=== PATIENT | male | born 1960 | race Caucasian/White ===

== ENCOUNTER 2017-08-12 22:22 | Emergency (ER) | END 2017-08-13 01:37 | disposition home or self-care (01) ==

== ENCOUNTER 2018-01-17 08:24 | Emergency (ER) | END 2018-01-17 10:12 | disposition home or self-care (01) ==

== ENCOUNTER 2018-04-01 16:36 | Emergency (ER) | END 2018-04-01 19:41 | disposition home or self-care (01) ==

== ENCOUNTER 2018-04-04 11:29 | Emergency (ER) | END 2018-04-04 12:28 | disposition home or self-care (01) ==